=== PATIENT | female | born 1935 | race Caucasian/White ===

== ENCOUNTER 2017-10-18 07:27 | Emergency (ER) | payer MEDICARE, OTHER ==
--- NOTE | 2017-10-18 07:37 | ER Document Report ---
ED Respiratory Problem - General Mode of Arrival: Medic Information source: Emergency Med Personnel Cannot obtain history due to: Unstable vital signs TRAVEL OUTSIDE OF THE [place] IN LAST 30 DAYS: No <STONEY PANDYE - Last Filed: 10/18/17 09:00> <AZARNITA URSULA - Last Filed: 10/18/17 14:40> - General Chief Complaint: Unresponsive Stated Complaint: UNRESPONSIVE Notes: Patient is an 82-year-old female who presents to the emergency department today after being found unresponsive this morning per family. According to EMS, the patient was not waking up and was not acting herself this morning per family. According to EMS, the patient is normally walking and talking without difficulty at baseline. Patient was normal yesterday according to EMS. Patient was found to have a BGL of 47 on arrival. EMS reports the patient has had a cough. History is limited. (STONEY PANDEY) - Related Data Allergies/Adverse Reactions: No Known Allergies Allergy (Unverified 11/20/12 11:51) Past Medical History - General Information source: Emergency Med Personnel, [facility] Records Cannot obtain history due to: Unstable vital signs - Social History Smoking Status: Smoker,Current Status Unk Frequency of alcohol use: None Drug Abuse: None Lives with: Family Family History: Reviewed & Not Pertinent - Past Medical History Cardiac Medical History: Reports: Hx Hypertension Pulmonary Medical History: Reports: Hx COPD Musculoskeltal Medical History: Reports Hx Arthritis Past Surgical History: Reports: Hx Hysterectomy <STONEY PANDEY - Last Filed: 10/18/17 09:00> Review of Systems - Review of Systems -: Yes ROS unobtainable due to patient's medical condition <STONEY PANDEY - Last Filed: 10/18/17 09:00> Physical Exam <STONEY PANDEY - Last Filed: 10/18/17 09:00> - Vital signs Interpretation: Hypoxic, Tachypneic, Other - Hypothermic - General General appearance: Unresponsive In distress: Severe - Respiratory Respiratory status: Respiratory distress Breath sounds: Decreased air movement - R>L, Rales - R>L - Cardiovascular Rhythm: Regular - Abdominal Tenderness: Nontender - Back Back: Nontender - Neurological Orientation: Disoriented to place, Disoriented to time [place] Coma Scale Eye Opening: Spontaneous [place] Coma Scale Verbal: Confused [place] Coma Scale Motor: Obeys Commands [place] Coma Scale Total: 14 <NITA ASKEW - Last Filed: 10/18/17 14:40> - Vital signs Vitals: Resp 11 L 10/18/17 07:31 - General Notes: Cachectic (NITA ASKEW) Course - Laboratory Result Diagrams: 10/18/17 07:35 10/18/17 07:35 <STONEY PANDEY - Last Filed: 10/18/17 09:00> - Laboratory Result Diagrams: 10/18/17 07:35 10/18/17 07:35 <NITA ASKEW - Last Filed: 10/18/17 14:40> - Re-evaluation Re-evalutation: 10/18/17 Patient is an 82-year-old female who was brought in for being unresponsive. initial glucose was 47. Patient was found to have a core temperature of 95 in the emergency department. Patient has what appears to be pneumonia from likely aspiration on the right side. Patient has been hypoxic. She was placed on BiPAP. I discussed CODE STATUS with her daughter and we had decided to not intubate at the time of presentation. Patient's blood work and presentation is very concerning for sepsis given her chest x-ray. Called to room because patient's heart rate dropped to the 30s. Patient became unresponsive and lost pulses. Daughter was in the room. CPR was initiated. About to intubate the patient and daughter asked that we stop CPR and not intubate the mother. She would like to just make her comfortable. Code was called. Time of 907. Family appreciative of care given. certificate has been signed (NITA ASKEW) - Vital Signs Vital signs: Temp Pulse Resp BP Pulse Ox 95.7 F L 100 24 H 92/44 L 71 L 10/18/17 07:33 10/18/17 07:33 10/18/17 09:03 10/18/17 09:03 10/18/17 08:46 - Laboratory Laboratory results interpreted by me: 10/18/17 10/18/17 10/18/17 07:35 07:35 07:35 WBC 19.3 H MCV 101 H MCHC 31.7 L RDW 16.3 H Plt Count 452 H Seg Neuts % (Manual) 87 H Band Neutrophils % 9 H Lymphocytes % (Manual) 1 L Abs Neuts (Manual) 18.5 H Abs Lymphs (Manual) 0.2 L PT 16.0 H VBG pH VBG pCO2 Potassium 5.2 H Carbon Dioxide 17 L BUN 40 H Creatinine 1.52 H Est GFR ( Amer) 40 L Est GFR (Non-Af Amer) 33 L Glucose 119 H POC Glucose Lactic Acid Direct Bilirubin 0.6 H AST 57 H Total Protein 5.6 L Albumin 2.5 L 10/18/17 10/18/17 10/18/17 07:35 07:35 08:00 WBC MCV MCHC RDW Plt Count Seg Neuts % (Manual) Band Neutrophils % Lymphocytes % (Manual) Abs Neuts (Manual) Abs Lymphs (Manual) PT VBG pH 7.12 L* VBG pCO2 64.3 H Potassium Carbon Dioxide BUN Creatinine Est GFR ( Amer) Est GFR (Non-Af Amer) Glucose POC Glucose 51 L Lactic Acid 5.7 H Direct Bilirubin AST Total Protein Albumin Critical Care Note - Critical Care Note Total time excluding time spent on procedures (mins): 60 - Evaluation and management of altered mental status, respiratory distress, cardiac arrest, counseling of patient and family <NITA ASKEW - Last Filed: 10/18/17 14:40> Discharge <STONEY PANDEY - Last Filed: 10/18/17 09:00> <NITA ASKEW - Last Filed: 10/18/17 14:40> - Discharge Clinical Impression: Respiratory arrest, Cardiac arrest Sepsis Qualifiers: Sepsis type: sepsis due to unspecified organism Qualified Code(s): A41.9 - Sepsis, unspecified organism Aspiration pneumonia Qualifiers: Aspiration pneumonia type: unspecified Laterality: right Lung location: unspecified part of lung Qualified Code(s): J69.0 - Pneumonitis due to inhalation of food and vomit Condition: Critical Disposition: Referrals: JESSICA MERCADO MD [Primary Care Provider] - Follow up as needed Scribe Attestation: 10/18/17 14:40 I personally performed the services described in the documentation, reviewed and edited the documentation which was dictated to the scribe in my presence, and it accurately records my words and actions. (NITA ASKEW) Scribe Documentation - Scribe Written by Scribe:: Leonora Collins, 10/18/2017 [id number] acting as scribe for :: Azar <STONEY PANDEY - Last Filed: 10/18/17 09:00>
[2017-10-18] MEDS ORDERED: NORMAL SALINE 1000 ML 1,000 ML IV ONE (07:38)
[2017-10-18 08:00] LABS: HEMATOCRIT 39.6 % (36.0-47.0); HEMOGLOBIN 12.5 g/dL (12.0-15.5); MEAN CORPUSCULAR HEMOGLOBIN 32.1 pg (27.0-33.4); MEAN CORPUSCULAR HGB CONC 31.7 g/dL (32.0-36.0); MEAN CORPUSCULAR VOLUME 101 fl (80-97); PLATELET COUNT 452 10^3/uL (150-450); RED BLOOD COUNT 3.91 10^6/uL (3.72-5.28); RED CELL DISTRIBUTION WIDTH 16.3 % (11.5-14.0); VENOUS BLOOD BASE EXCESS -9.5 mmol/L; VENOUS BLOOD HCO3 20.5 mmol/L (20-32); VENOUS BLOOD PCO2 64.3 mmHg (35-63); WHITE BLOOD COUNT 19.3 10^3/uL (4.0-10.5)
[2017-10-18 08:03] LABS: VENOUS BLOOD PH 7.12 (7.30-7.42)
[2017-10-18 08:18] LABS: ABSOLUTE LYMPHOCYTES# (MANUAL) 0.2 10^3/uL (0.5-4.7); ABSOLUTE MONOCYTES # (MANUAL) 0.6 10^3/uL (0.1-1.4); ABSOLUTE NEUTROPHILS# (MANUAL) 18.5 10^3/uL (1.7-8.2); BAND NEUTROPHILS % (MANUAL) 9 % (3-5); BASOPHILS % (MANUAL) 0 % (0-2); EOSINOPHILS % (MANUAL) 0 % (0-6); LYMPHOCYTES % (MANUAL) 1 % (13-45); MONOCYTES % (MANUAL) 3 % (3-13); SEGMENTED NEUTROPHILS % (MAN) 87 % (42-78); TOTAL CELLS COUNTED 100
[2017-10-18 08:20] LABS: ANISOCYTOSIS 1+; BURR CELLS SLIGHT; OVALOCYTES SLIGHT; PLATELET COMMENT INCREASED; POIKILOCYTOSIS 1+; POLYCHROMASIA SLIGHT; TOXIC GRANULATION SLIGHT; TOXIC VACUOLATION PRESENT
[2017-10-18 08:27] LABS: APPEARANCE,URINE CLEAR; BILIRUBIN,URINE NEGATIVE (NEGATIVE); COLOR,URINE YELLOW; GLUCOSE, URINE NEGATIVE (NEGATIVE); KETONES,URINE NEGATIVE (NEGATIVE); LEUKOCYTE ESTERASE,URINE NEGATIVE (NEGATIVE); NITRITE,URINE NEGATIVE (NEGATIVE); PROTEIN,URINE NEGATIVE (NEGATIVE); URINE SPECIFIC GRAVITY 1.012; UROBILINOGEN,URINE NEGATIVE mg/dL (<2.0)
[2017-10-18 08:31] LABS: ALANINE AMINOTRANSFERASE 31 U/L (9-52); ALBUMIN 2.5 g/dL (3.5-5.0); ALKALINE PHOSPHATASE 110 U/L (38-126); ANION GAP 17 (5-19); ASPARTATE AMINO TRANSFERASE 57 U/L (14-36); BILIRUBIN,DIRECT 0.6 mg/dL (0.0-0.4); BILIRUBIN,TOTAL 0.6 mg/dL (0.2-1.3); BLOOD UREA NITROGEN 40 mg/dL (7-20); CALCIUM 8.5 mg/dL (8.4-10.2); CARBON DIOXIDE 17 mmol/L (22-30); CHLORIDE 106 mmol/L (98-107); GLUCOSE 119 mg/dL (75-110); POTASSIUM 5.2 mmol/L (3.6-5.0); SODIUM 140.1 mmol/L (137-145); TOTAL PROTEIN 5.6 g/dL (6.3-8.2)
[2017-10-18] MEDS ORDERED: ETOMIDATE INJ/PF 20 MG/10 ML SDV IV ONE (09:04)
--- NOTE | 2017-10-18 09:16 | RADIOLOGY REPORT (SQ) ---
EXAM DESCRIPTION: CHEST SINGLE VIEW COMPLETED DATE/TIME: 10/18/2017 8:03 am REASON FOR STUDY: SOB COMPARISON: CT chest 06/29/2007 Chest films 01/24/2009, 01/25/2009 EXAM PARAMETERS: NUMBER OF VIEWS: One view. TECHNIQUE: Single frontal radiographic view of the chest acquired. RADIATION DOSE: NA LIMITATIONS: Patient is rotated towards the SANDIP orientation FINDINGS: LUNGS AND PLEURA: Left lung is hyperinflated and hyperlucent. Free of focal infiltrates. On the right side, there is trace right pleural fluid, consolidation in the right lung base just abov e the hemidiaphragm, and diffuse pulmonary vascular congestion. Right perihilar airspace disease may be present atelectasis versus pneumonia. MEDIASTINUM AND HILAR STRUCTURES: Distorted by rotation. Tortuous air-filled esophagus projected ove r the left hilum. Prominent central pulmonary arteries worrisome for pulmonary hypertension HEART AND VASCULAR STRUCTURES: Right-sided vascular congestion. 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 OTHER: No other significant finding. IMPRESSION: Asymmetric right-sided airspace disease, trace pleural fluid and pulmonary vascular roberto estion. Right basilar pneumonia could not be excluded. Paucity of findings on the left side. This could be due to left-sided pulmonary embolus TECHNICAL DOCUMENTATION: JOB ID: [id number]- All Rights Reserved
--- NOTE | 2017-10-18 13:07 | EKG REPORT ---
SEVERITY:- ABNORMAL ECG - SINUS RHYTHM RIGHT ATRIAL ABNORMALITY LOW VOLTAGE IN FRONTAL LEADS CONSIDER INFERIOR INFARCT : Confirmed by: Dang Mccoy 18-Oct-2017 13:06:59
[2017-10-18 14:40] VITALS: BP 133/89
[2017-10-18] MEDS ORDERED: EPINEPHRINE INJ 1 MG/10 ML DISP.SYRIN ONE (18:52)
== END 2017-10-18 11:15 | disposition expired ==
LOC: ER 07:27
DX: A41.9 Sepsis, unspecified organism (principal); J69.0 Pneumonitis due to inhalation of food and vomit; I46.9 Cardiac arrest, cause unspecified; T68.XXXA Hypothermia, initial encounter; X58.XXXA Exposure to other specified factors, initial encounter; I10 Essential (primary) hypertension; J44.9 Chronic obstructive pulmonary disease, unspecified; R09.02 Hypoxemia; R00.0 Tachycardia, unspecified
CPT/HCPCS: 93005; 99291; 92950; 96360; 36415; 87040; 87086; 82962; 85025; 85610; 80053; 81001; 84484; 82803; 83605; 71010; 93010; J0171; J7030